=== PATIENT | female | born 1985 | race Caucasian/White ===

== ENCOUNTER 2017-03-14 16:30 | Observation (INO) ==
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
[2017-03-14 17:17] LABS: Bilirubin,Urine Negative (Negative); Blood,Urine Negative (Negative); Clarity,Urine Clear (Clear); Color,Urine Yellow (Yellow); Glucose,Urine (UA) Normal (Normal); Ketones,Urine Negative (Negative); Leukocyte Esterase,Urine Negative (Negative); Nitrite,Urine Negative (Negative); Protein,Urine Negative (Neg-Trace); Specific Gravity,Urine 1.009 (1.010-1.025); Urobilinogen,Urine Normal (Normal)
[2017-03-14 17:26] LABS: Amphetamine Screen,Urine Negative ng/mL (Cutoff=1000); Barbiturate Screen,Urine Negative ng/mL (Cutoff=200); Benzodiazepines Screen,Urine Negative ng/mL (Cutoff=200); Cannabinoid Screen,Urine Negative ng/mL (Cutoff = 50); Cocaine Screen,Urine Positive ng/mL (Cutoff= 300); Opiate Screen,Urine Negative ng/mL (Cutoff=300); Phencyclidine Screen,Urine Negative ng/mL (Cutoff=25)
[2017-03-14 17:26] LABS: Basophils % 0.2 %; Eosinophils # 0.1 K/mcL (0.0-0.6); Eosinophils % 1.1 %; Hemoglobin 15.5 g/dL (11.5-15.4); Immature Granulocytes % 0.2 % (0-4); Lymphocytes # 2.3 K/mcL (0.6-4.6); Lymphocytes % 28.7 %; Mean Corpuscular HGB Conc 33.7 g/dL (31.6-35.5); Mean Corpuscular Hemoglobin 29.7 pg (28.0-33.3); Mean Corpuscular Volume 88.1 fL (83.0-100.0); Mean Platelet Volume 9.5 fL (9.4-12.4); Monocytes # 0.4 K/mcL (0.0-1.3); Monocytes % 4.7 %; Neutrophils # 5.2 K/mcL (1.6-8.9); Platelet Count 299 K/mcL (140-400); Red Blood Count 5.22 M/mcL (3.82-4.97); Red Cell Distribution Width 13.6 % (11.5-14.5); Segmented Neutrophils % 65.1 %
[2017-03-14] MEDS ORDERED: *HR* LORazepam 1 MG TABLET PO ONE (17:29)
[2017-03-14 17:42] LABS: BUN/Creatinine Ratio 22 (6-26); Blood Urea Nitrogen 17 mg/dL (7-20); Calcium 9.9 mg/dL (8.6-10.8); Carbon Dioxide 26 mEq/L (19-29); Chloride 105 mEq/L (98-109); Glucose 124 mg/dL (70-99); Osmolality,Calculated 293 (280-300); Potassium 3.7 mEq/L (3.5-4.5); Sodium 140 mEq/L (136-145); eGFR For African Americans > 60 (> 60); eGFR For Non-African Americans > 60 (> 60)
[2017-03-14 17:43] LABS: Acetaminophen < 1.0 mcg/mL (10-30); Ethanol < 10 mg/dL (0-10); Salicylate < 5.0 mg/dL (15-30)
[2017-03-14 18:01] LABS: Albumin 4.2 g/dL (3.5-5.0); Albumin/Globulin Ratio 0.9 (1.1-2.2); Bilirubin,Direct 0.2 mg/dL (0.0-0.5); Bilirubin,Indirect 0.4 mg/dL (0.0-1.2); Bilirubin,Total 0.6 mg/dL (0.2-1.2); Globulin 4.5 g/dL (2.4-3.5); Total Protein 8.7 g/dL (6.0-8.3)
[2017-03-14] MEDS ORDERED: Nicotine 21 MG PATCH.TD24 TD ONE (19:15)
[2017-03-14] MEDS ORDERED: traZODone 50 MG TABLET PO PRN (21:53)
[2017-03-14] MEDS ORDERED: Haloperidol Lactate 5 MG/ML VIAL IM PRN (21:53)
[2017-03-14] MEDS ORDERED: hydrOXYzine pamoate 25 MG CAPSULE PO PRN (21:53)
[2017-03-14] MEDS ORDERED: *HR* LORazepam 2 MG/ML VIAL IM PRN (21:53)
[2017-03-14] MEDS ORDERED: Acetaminophen 325 MG TABLET PO PRN (21:53)
[2017-03-14] MEDS ORDERED: Mag Hydrox/Al Hydrox/Simeth 30 ML UDC PO PRN (21:53)
[2017-03-14] MEDS ORDERED: *HR* LORazepam 1 MG TABLET PO PRN (21:53)
[2017-03-14] MEDS ORDERED: MOM Conc 10 ML UD.LIQ PO PRN (21:53)
[2017-03-15] MEDS ORDERED: Nicotine 21 MG PATCH.TD24 TD SCH (09:00)
[2017-03-15 11:56] VITALS: BP 105/72
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
[2017-03-15] MEDS ORDERED: Nicotine 21 MG PATCH.TD24 TD ONE (18:42)
[2017-03-15] MEDS ORDERED: Mirtazapine 15 MG TABLET PO SCH (21:00)
--- NOTE | 2017-03-18 07:20 | Electrocardiograph Report ---
[place] [id number] Test Date: 2017-03-14 Pat Name: Georgiana Decker Department: [id number] Room: 1A22 Gender: F Client Renewal Specialist: [facility] : 1985 Requested By: Samuel Cope Order Number: [id number] Reading MD: Ventura Alonso MD Measurements Intervals [place] Rate: 82 P: 76 CT: 147 QRS: 60 QRSD: 88 T: 33 QT: 374 QTc: 412 Interpretive Statements SINUS RHYTHM LEFT ATRIAL ENLARGEMENT Electronically Signed On 03-18-2017 7:18:45 EDT by Ventura Alonso MD
== END 2017-03-15 14:25 | disposition home or self-care (01) ==
LOC: EMEROO 16:30 → 1ANU 16:30
PROVIDERS: ADMIT Student in an Organized Health Care Education/Training Program; ATTEND Student in an Organized Health Care Education/Training Program

== ENCOUNTER 2017-05-05 22:01 | Observation (INO) ==
[2017-05-05] MEDS ORDERED: Ondansetron 4 MG/2 ML VIAL IVP ONE (22:03)
--- NOTE | 2017-05-05 22:20 | Emergency Department Note ---
Overdose HPI - General Chief Complaint: ED Overdose Stated Complaint: OD Time Seen by Provider: 05/05/17 22:03 Source: patient, EMS Mode of arrival: EMS Limitations: no limitations, altered mental status Nursing Notes Reviewed: Yes Vital Signs Reviewed: Yes - History of Present Illness HPI Narrative: Patient presents from [facility] after being found unresponsive in the bathroom. She arrives in the care of EMS personnel. The police administered 2 mg of intranasal Narcan with rapid resolution of symptoms. Injection drug paraphernalia found at the scene. The patient presents anxious and nauseated with active vomiting. She admits to active IV methamphetamine use. She admits to using what she thought was "ice." She denies a suicide attempt. She denies ingestion of other intoxicants Pt Subjective Complaint: accidental overdose Onset (ago): Just [employer] Associated symptoms: emesis Treatments Prior to Arrival: narcan - Related Data Previous Rx's Medication Instructions Recorded Buspirone HCl [Buspar] 10 mg PO TID PRN #180 tablet 03/15/17 Cyclobenzaprine [Flexeril] 10 mg PO BID #20 tablet 03/15/17 DiphenhydraMINE [Benadryl] 25 mg PO Q6HR #40 capsule 03/15/17 Haloperidol [Haldol] 2 mg PO HS #30 tablet 03/15/17 Mirtazapine [Remeron] 15 mg PO HS #30 tablet 03/15/17 Benztropine [Cogentin] 1 mg PO BID PRN #10 tablet 03/16/17 Naproxen [Naprosyn] 250 mg PO BID #14 tablet 03/16/17 Allergies Allergy/AdvReac Type Severity Reaction Status Date / Time codeine Allergy Itching Verified 12/09/15 12:04 Fish Containing Products Allergy See Verified 03/15/17 11:59 Comments risperidone [From Risperdal] Allergy See Verified 08/10/16 19:21 Comments All systems ED: reviewed and negative except as stated. Constitutional: Reports: as per HPI Eyes: Reports: as per HPI ENT ED: Reports: as per HPI Cardiovascular: Reports: as per HPI Respiratory: Reports: as per HPI Gastrointestinal: Reports: nausea, vomiting Genitourinary: Reports: as per HPI Musculoskeletal: Reports: as per HPI Integumentary: Reports: as per HPI Neurological: Reports: as per HPI Psychiatric: Reports: as per HPI Endocrine: Reports: as per HPI Hematological/Lymphatic: Reports: as per HPI Allergic/Immunologic: Reports: as per HPI Past Medical History - Past Medical History Source: patient Medical history: Reports: asthma, seizures, other Surgical history: Reports: cholecystectomy Psychiatric history: Reports: bipolar, panic disorder, PTSD, prior suicide attempt, previous psychiatric hospitalization 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 - General Limitations: no limitations, altered mental status General appearance: appears intoxicated, anxious - Head Head exam: atraumatic - Eye Eye exam: Present: normal appearance - ENT ENT exam: normal exam - Neck Neck exam: Present: normal inspection - Chest Chest inspection: Present: normal inspection, symmetric chest wall rise - Respiratory Respiratory exam: Present: normal lung sounds bilaterally - Cardiovascular Cardiovascular exam: Present: regular rate, normal rhythm, normal heart sounds - Rectal Exam Rectal exam: Present: deferred - Extremities Exam Extremities exam: Present: normal inspection - Neurological Exam Neurological exam: Present: alert, oriented X3, CN II-XII intact - Psychiatric Psychiatric exam: Present: anxious - Skin Skin exam: Present: warm, dry, intact Course Course Narrative: Patient presents with an accidental overdose. She thought she was injecting methamphetamine but likely accidentally ingested opiates she is alert now that she has been given Narcan. She denies intention for self-harm. She does not appear otherwise intoxicated. Administered Zofran and diphenhydramine for her symptomatically for. The patient is contrite and apologetic - Reevaluation(s) Reevaluation #1: Care to be endorsed to Dr. Dejesus at 23:00 pending sobriety and reevaluate Vital Signs Temperature 97.7 F 05/05/17 22:11 Pulse Rate 93 05/05/17 22:11 Respiratory Rate 16 05/05/17 22:11 Blood Pressure 143/88 05/05/17 22:11 O2 Sat by Pulse Oximetry 99 05/05/17 22:11 Temperature 97.7 F 05/05/17 22:11 Pulse Rate 93 05/05/17 22:11 Respiratory Rate 16 05/05/17 22:11 Blood Pressure 143/88 05/05/17 22:11 O2 Sat by Pulse Oximetry 99 05/05/17 22:11 Oxygen Delivery Oxygen Delivery Room Air Disposition Clinical Impression: Accidental overdose Qualifiers: Encounter type: initial encounter Qualified Code(s): T50.901A - Poisoning by unspecified drugs, medicaments and biological substances, accidental ( unintentional), initial encounter Disposition: Home, Self-Care Condition: Fair Instructions: Adult Overdose (ED) Reasons to Return/Additional Instructions: Do not inject drugs. Whether this is methamphetamines or opiates or any other illicit substance, either way it is very dangerous and could kill you Referrals: NO,PCP [Primary Care Provider] - Forms: ED Satisfaction Letter Time of Disposition: 22:27
[2017-05-06 00:34] LABS: Basophils % 0.4 %; Eosinophils # 0.2 K/mcL (0.0-0.6); Eosinophils % 1.7 %; Hemoglobin 13.3 g/dL (11.5-15.4); Immature Granulocytes % 0.4 % (0-4); Lymphocytes # 1.7 K/mcL (0.6-4.6); Lymphocytes % 16.3 %; Mean Corpuscular HGB Conc 34.1 g/dL (31.6-35.5); Mean Corpuscular Hemoglobin 29.6 pg (28.0-33.3); Mean Corpuscular Volume 86.7 fL (83.0-100.0); Monocytes # 0.5 K/mcL (0.0-1.3); Monocytes % 5.3 %; Neutrophils # 7.7 K/mcL (1.6-8.9); Platelet Count 257 K/mcL (140-400); Segmented Neutrophils % 75.9 %
[2017-05-06 00:48] LABS: Alanine Aminotransferase 17 Units/L (0-55); Albumin 3.6 g/dL (3.5-5.0); Albumin/Globulin Ratio 1.1 (1.1-2.2); Alkaline Phosphatase 67 Units/L (38-126); Aspartate Amino Transferase 20 Units/L (5-34); BUN/Creatinine Ratio 11 (6-26); Bilirubin,Direct 0.2 mg/dL (0.0-0.5); Bilirubin,Indirect 0.1 mg/dL (0.0-1.2); Bilirubin,Total 0.3 mg/dL (0.2-1.2); Blood Urea Nitrogen 8 mg/dL (7-20); Calcium 9.1 mg/dL (8.6-10.8); Carbon Dioxide 29 mEq/L (19-29); Chloride 105 mEq/L (98-109); Globulin 3.4 g/dL (2.4-3.5); Glucose 127 mg/dL (70-99); Osmolality,Calculated 288 (280-300); Potassium 3.4 mEq/L (3.5-4.5); Sodium 139 mEq/L (136-145); eGFR For African Americans > 60 (> 60); eGFR For Non-African Americans > 60 (> 60)
[2017-05-06 01:01] LABS: Acetaminophen < 1.0 mcg/mL (10-30); Ethanol < 10 mg/dL (0-10); Salicylate < 5.0 mg/dL (15-30)
--- NOTE | 2017-05-06 01:31 | Emergency Department Note ---
Disposition Clinical Impression: Accidental overdose Qualifiers: Encounter type: initial encounter Qualified Code(s): T50.901A - Poisoning by unspecified drugs, medicaments and biological substances, accidental ( unintentional), initial encounter Disposition: Home, Self-Care Condition: Fair General Adult HPI - General Chief complaint: ED Overdose Stated complaint: OD Time Seen by Provider: 05/05/17 22:03 Source: patient, EMS Mode of arrival: EMS Limitations: no limitations, altered mental status - History of Present Illness Pain Scale: 0 - Related Data Previous Rx's Medication Instructions Recorded Buspirone HCl [Buspar] 10 mg PO TID PRN #180 tablet 03/15/17 Cyclobenzaprine [Flexeril] 10 mg PO BID #20 tablet 03/15/17 DiphenhydraMINE [Benadryl] 25 mg PO Q6HR #40 capsule 03/15/17 Haloperidol [Haldol] 2 mg PO HS #30 tablet 03/15/17 Mirtazapine [Remeron] 15 mg PO HS #30 tablet 03/15/17 Benztropine [Cogentin] 1 mg PO BID PRN #10 tablet 03/16/17 Naproxen [Naprosyn] 250 mg PO BID #14 tablet 03/16/17 Allergies Allergy/AdvReac Type Severity Reaction Status Date / Time codeine Allergy Itching Verified 12/09/15 12:04 Fish Containing Products Allergy See Verified 03/15/17 11:59 Comments risperidone [From Risperdal] Allergy See Verified 08/10/16 19:21 Comments Constitutional: Reports: as per HPI Eyes: Reports: as per HPI ENT ED: Reports: as per HPI Cardiovascular: Reports: as per HPI Respiratory: Reports: as per HPI Gastrointestinal: Reports: nausea, vomiting Genitourinary: Reports: as per HPI Musculoskeletal: Reports: as per HPI Integumentary: Reports: as per HPI Neurological: Reports: as per HPI Psychiatric: Reports: as per HPI Endocrine: Reports: as per HPI Hematological/Lymphatic: Reports: as per HPI Allergic/Immunologic: Reports: as per HPI Past Medical History - Past Medical History Medical history: Reports: asthma, seizures, other Surgical history: Reports: cholecystectomy Psychiatric history: Reports: bipolar, panic disorder, PTSD, prior suicide attempt, previous psychiatric hospitalization 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 - Social History Smoking Status: Current every day smoker Smokeless Tobacco Status: No Alcohol use: Reports: none Drug use: Reports: marijuana, IV Drug Use Physical Exam - General Limitations: no limitations, altered mental status General appearance: appears intoxicated, anxious Course Vital Signs Temperature 97.7 F 05/05/17 22:11 Pulse Rate 93 05/05/17 22:11 Respiratory Rate 16 05/05/17 22:11 Blood Pressure 143/88 05/05/17 22:11 O2 Sat by Pulse Oximetry 99 05/05/17 22:11 Temperature 97.7 F 05/05/17 22:11 Pulse Rate 70 05/06/17 00:55 Respiratory Rate 16 05/06/17 00:55 Blood Pressure 126/86 05/06/17 00:55 O2 Sat by Pulse Oximetry 98 05/06/17 00:55 Oxygen Delivery Oxygen Delivery Room Air Medical Decision Making - Lab Data Result diagrams: 05/06/17 00:04 05/06/17 00:04 Lab Results 05/06/17 05/06/17 Range/Units 00:04 00:04 WBC 10.1 (4.3-11.1) K/mcL RBC 4.50 (3.82-4.97) M/mcL Hgb 13.3 (11.5-15.4) g/dL Hct 39.0 (35.3-44.9) % MCV 86.7 (83.0-100.0) fL MCH 29.6 (28.0-33.3) pg MCHC 34.1 (31.6-35.5) g/dL RDW 13.0 (11.5-14.5) % Plt Count 257 (140-400) K/mcL MPV 10.0 (9.4-12.4) fL Immature Gran % 0.4 (0-4) % Seg Neutrophils % 75.9 % Lymphocytes % 16.3 % Monocytes % 5.3 % Eosinophils % 1.7 % Basophils % 0.4 % Neutrophils # 7.7 (1.6-8.9) K/mcL Lymphocytes # 1.7 (0.6-4.6) K/mcL Monocytes # 0.5 (0.0-1.3) K/mcL Eosinophils # 0.2 (0.0-0.6) K/mcL Basophils # 0.0 (0.0-0.2) K/mcL Sodium 139 (136-145) mEq/L Potassium 3.4 L (3.5-4.5) mEq/L Chloride 105 (98-109) mEq/L Carbon Dioxide 29 (19-29) mEq/L BUN 8 (7-20) mg/dL Creatinine 0.72 (0.57-1.11) mg/dL Est GFR ( Amer) > 60 (> 60) Est GFR (Non-Af Amer) > 60 (> 60) BUN/Creatinine Ratio 11 (6-26) Glucose 127 H (70-99) mg/dL Calculated Osmolality 288 (280-300) Calcium 9.1 (8.6-10.8) mg/dL Total Bilirubin 0.3 (0.2-1.2) mg/dL Direct Bilirubin 0.2 (0.0-0.5) mg/dL Indirect Bilirubin 0.1 (0.0-1.2) mg/dL AST 20 (5-34) Units/L ALT 17 (0-55) Units/L Alkaline Phosphatase 67 (38-126) Units/L Serum Total Protein 7.0 (6.0-8.3) g/dL Albumin 3.6 (3.5-5.0) g/dL Globulin 3.4 (2.4-3.5) g/dL Albumin/Globulin Ratio 1.1 (1.1-2.2) Salicylates < 5.0 L (15-30) mg/dL Acetaminophen < 1.0 L (10-30) mcg/mL Ethyl Alcohol < 10 (0-10) mg/dL Attestation Statement - Attestation Attestation: Please merge this chart. I saw this patient injected with Dr. Sandra Parra. In summary this patient suffered from a opiate overdose and ultimately had ongoing altered mental status requiring subsequent doses of Narcan. Chest x-ray revealed drug paraphernalia located in her underwear. This was sutured by our security and police department. The patient will be admitted to the intensive care unit for further monitoring. Basic laboratory analyses were obtained. The patient remains in critical condition with high potential for life- threatening deterioration. Critical care time was 35 minutes. This is excluding billable procedures.
[2017-05-06 02:06] LABS: Bilirubin,Urine Negative (Negative); Blood,Urine Small (Negative); Clarity,Urine Cloudy (Clear); Color,Urine Yellow (Yellow); Glucose,Urine (UA) Normal (Normal); Ketones,Urine Negative (Negative); Leukocyte Esterase,Urine Large (Negative); Nitrite,Urine Negative (Negative); Protein,Urine Negative (Neg-Trace); Specific Gravity,Urine 1.014 (1.010-1.025); Urobilinogen,Urine Normal (Normal)
[2017-05-06 02:14] LABS: Amphetamine Screen,Urine Positive ng/mL (Cutoff=1000); Barbiturate Screen,Urine Negative ng/mL (Cutoff=200); Benzodiazepines Screen,Urine Negative ng/mL (Cutoff=200); Cannabinoid Screen,Urine Negative ng/mL (Cutoff = 50); Cocaine Screen,Urine Positive ng/mL (Cutoff= 300); Opiate Screen,Urine Positive ng/mL (Cutoff=300); Phencyclidine Screen,Urine Negative ng/mL (Cutoff=25)
[2017-05-06 02:17] LABS: Squamous Epithelial Cell,Urine Many per lpf (None-Few)
[2017-05-06 02:18] LABS: Bacteria,Urine Many per hpf (None-Few); RBC,Urine 0-3 per hpf (0-3); WBC,Urine 15-30 per hpf (0-3)
[2017-05-06 02:19] LABS: Amorphous Sediment,Urine Moderate (Few); Mucus,Urine Few (Few)
--- NOTE | 2017-05-06 02:23 | Internal Med History&Physical ---
Date of Encounter: 05/06/17 Time of Encounter: 02:19 Assessment and Plan (1) Drug overdose, multiple drugs Current visit: Yes Status: Acute Patient's tox screen positive for opiates amphetamines and cocaine. Has been given several doses of Narcan tonight. Plan: Continue to monitor the patient. Narcan when necessary as needed for respiratory depression and altered mental status. Zofran for nausea. (2) Cocaine abuse Current visit: Yes Status: Acute Plan as above Internal Medicine - H&P: HPI Admitted From: Emergency Dept Plans for Post Hospital Care: Home History of present illness: Ms. Decker is a 31 year old female who was found unresponsive in a [facility] restroom. 2 mg of narcan was administered by police internasally. It was reported that this resolved patient's symptoms. She was subsequently given more doses of Narcan while in the emergency department due to an altered mental status. It was reported that on scene she had injection drug paraphernalia on her. She was here she was found to have drug paraphernalia in her bra. She is being admitted to the ICU for drug overdose with multiple Narcan administrations needed. On my examination emergency department the patient was asleep. She is easily aroused quickly went back to sleep. She is maintaining her airway appropriately. She is aware of where she is and what month it is however she says is 1998. Her pupils are dilated. They are responsive. She has full movement of all 4 extremities. When I attempt to check her feet she quickly draws up her legs and flails her arms saying that she is cold. We will monitor the patient in ICU for any respiratory depression. We have ordered urine Narcan to be used as needed for a for depression. Past Med Surg Social Fam HX - Past Medical History Medical history: asthma, seizures, other Psychiatric history: bipolar, panic disorder, PTSD, prior suicide attempt, previous psychiatric hospitalization - Past Surgical History Surgical History: cholecystectomy - Social History Smoking Status: Current every day smoker Smokeless Tobacco Status: No Alcohol use: none Drug use: marijuana, IV Drug Use Internal Medicine - H&P: Meds Buspirone HCl [Buspar] 10 mg PO TID PRN #180 tablet 03/15/17 [Rx] Cyclobenzaprine [Flexeril] 10 mg PO BID #20 tablet 03/15/17 [Rx] DiphenhydraMINE [Benadryl] 25 mg PO Q6HR #40 capsule 03/15/17 [Rx] Haloperidol [Haldol] 2 mg PO HS #30 tablet 03/15/17 [Rx] Mirtazapine [Remeron] 15 mg PO HS #30 tablet 03/15/17 [Rx] Benztropine [Cogentin] 1 mg PO BID PRN #10 tablet 03/16/17 [Rx] Naproxen [Naprosyn] 250 mg PO BID #14 tablet 03/16/17 [Rx] Allergies codeine Allergy (Verified 12/09/15 12:04) Itching Fish Containing Products Allergy (Verified 03/15/17 11:59) See Comments "Throat swells and gets hives" risperidone [From Risperdal] Allergy (Verified 08/10/16 19:21) See Comments ROS unobtainable: due to mental status (Patient is easily arousable however has an altered mental status. She is aware of her place in the month but does not know what year it is.) All Systems PM: A 10-system review of systems was performed and is negative for pertinent findings except as documented above in the HPI. - Constitutional Vitals: Temp Pulse Resp BP Pulse Ox 97.7 F 70 16 126/86 98 05/05/17 22:11 05/06/17 00:55 05/06/17 00:55 05/06/17 00:55 05/06/17 00:55 General appearance: Present: disheveled, A&O X 2 - Head Head exam: Present: atraumatic, normal inspection, normocephalic - Eye Eye exam: Present: conjunctival injection, EOMI, normal appearance, PERRL. Absent: scleral icterus Pupils: Present: normal accommodation - Neck Neck exam general surgery: Present: full ROM, normal inspection, trachea midline - Expanded Neck Exam Neck exam: Absent: anterior neck swelling, tracheal deviation - Respiratory Respiratory exam: Present: CTAB. Absent: accessory muscle use, chest wall tenderness - Cardiovascular Cardiovascular exam: Present: RRR. Absent: irregular rhythm, JVD - GI/Abdominal GI/Abdominal exam: Present: normal bowel sounds, soft, no peritoneal signs. Absent: distended, firm, guarding, rigid - Extremities Exam Extremities exam: Present: full ROM, normal capillary refill, normal inspection , warm, radial pulses palpable and symetrical. Absent: calf tenderness, pedal edema, tenderness - Neurological Exam Neurological exam: Present: alert, altered (Nose her location and her name also knows the month but is unaware of the year.), no focal deficits - Skin Skin exam: Present: dry, normal color, warm. Absent: abrasion, excoriation, rash Internal Med - H&P Results - Labs CBC & Chem 7: 05/06/17 00:04 05/06/17 00:04 Labs: Urine 05/06/17 Range/Units 01:45 Urine Color Yellow (Yellow) Urine Clarity Cloudy A (Clear) Urine pH 7.0 (5.0-8.0) pH Units Ur Specific [place] 1.014 (1.010-1.025) Urine Protein Negative (Neg-Trace) mg/dL Urine Glucose (UA) Normal (Normal) mg/dL
[2017-05-06] MEDS ORDERED: Ondansetron 4 MG/2 ML VIAL IVP PRN ×2 (02:52→14:22)
[2017-05-06] MEDS ORDERED: Acetaminophen 325 MG TABLET PO PRN ×2 (02:53→14:22)
[2017-05-06] MEDS ORDERED: Nicotine 7 MG PATCH.TD24 TD PRN ×2 (03:15→14:22)
[2017-05-06] MEDS: 0.9 % Sodium Chloride 1,000 ML IVC SCH ×4 (03:17→23:04)
[2017-05-06] MEDS ORDERED: Potassium Chloride Elixir 20 MEQ/15 ML UDC PO ONE (07:18)
--- NOTE | 2017-05-06 14:59 | Internal Med Progress Note ---
<Trevor Hackett - Last Filed: 05/06/17 16:24> Date of Encounter: 05/06/17 Time of Encounter: 09:45 - Assessment and plan (1) Accidental overdose Current Visit: Yes Status: Acute Assessment and plan: -Patient was found unresponsive in [facility]'s rest[facility] -She claims that she overdosed on Zyprexa, but admitted to attending physician that she was inhaling opiate medications -UDS: + opiates, cocaine, amphetamines -She admits to sharing needles previously - test ordered per poison control, which is negative -Narcan prn, zofran prn -We will measure a CMP in the morning to rule out any potential for delayed development of tylenol toxicity -SANE nurse evaluation and examination Qualifiers: Encounter type: initial encounter Qualified Code(s): T50.901A - Poisoning by unspecified drugs, medicaments and biological substances, accidental ( unintentional), initial encounter (2) Drug overdose, multiple drugs Current Visit: Yes Status: Acute Assessment and plan: As above Qualifiers: Encounter type: initial encounter Injury intent: accidental or unintentional Qualified Code(s): T50.901A - Poisoning by unspecified drugs, medicaments and biological substances, accidental (unintentional), initial encounter (3) Polysubstance dependence including opioid type drug, episodic abuse Current Visit: Yes Status: Acute Assessment and plan: The patient has a history of polysubstance abuse, which is manifesting acutely in the form of a drug overdose. She is asking for opioid pain medication and has remained agitated. -We will continue to monitor for signs of D/T (4) DVT prophylaxis Current Visit: Yes Status: Acute Assessment and plan: -Start SQ Heparin (5) UTI (urinary tract infection) Current Visit: Yes Status: Acute Assessment and plan: -Urine shows LE and Nitrite, however there are also many squamous cells -Given altered mental status from overdose, concomittant UTI cannot be ruled out given the urine sample -Order repeat urine from cath -Patient given ceftriaxone empirically. Qualifiers: Urinary tract infection type: acute cystitis Hematuria presence: without hematuria Qualified Code(s): N30.00 - Acute cystitis without hematuria - Subjective Interval history: The patient was asleep but easy to arouse at the time of exam. She was uncooperative with exam, spoke quietly, and did not answer questions openly. - Constitutional Vitals: Temp Pulse Resp BP Pulse Ox 97.1 F L 82 17 110/75 96 05/06/17 12:04 05/06/17 12:45 05/06/17 12:45 05/06/17 12:45 05/06/17 12:45 General appearance: Present: disheveled, A&O X 2, no acute distress, underweight. Absent: cooperative - Head Head exam: Present: atraumatic, normal inspection - Eye Eye exam: Present: normal appearance, PERRL - ENT ENT exam: Present: mucous membranes moist - Neck Neck exam general surgery: Present: normal inspection, supple, trachea midline. Absent: lymphadenopathy, tenderness - Respiratory Respiratory exam: Present: accessory muscle use, CTAB. Absent: rhonchi, stridor , wheezes - Cardiovascular Cardiovascular exam: Present: RRR, +S1, +S2. Absent: gallop, JVD, rubs - GI/Abdominal GI/Abdominal exam: Present: normal bowel sounds, soft, no peritoneal signs. Absent: distended, tenderness - Extremities Exam Extremities exam: Present: warm, radial pulses palpable and symetrical. Absent : calf tenderness, cyanotic, pedal edema - Neurological Exam Neurological exam: Present: altered, CN II-XII intact, reflexes normal, no focal deficits Additional comments: Patient is alert to physical stimuli but somnolent - Psychiatric Psychiatric exam: Present: agitated, anxious, flat affect. Absent: suicidal ideation - Skin Skin exam: Present: dry, excoriation, normal color. Absent: petechiae, rash Internal Medicine: Result - Labs CBC & Chem 7: 05/06/17 00:04 05/06/17 00:04 Labs: Urine 05/06/17 Range/Units 01:45 Urine Color Yellow (Yellow) Urine Clarity Cloudy A (Clear) Urine pH 7.0 (5.0-8.0) pH Units Ur Specific [place] 1.014 (1.010-1.025) Urine Protein Negative (Neg-Trace) mg/dL Urine Glucose (UA) Normal (Normal) mg/dL Consult Discharge Plan - Plan Referrals: NO,PCP [Primary Care Provider] - <Remigio Beaver P - Last Filed: 05/06/17 20:25> Date of Encounter: 05/06/17 - Constitutional Vitals: Temp Pulse Resp BP Pulse Ox 97.1 F L 82 17 110/75 96 05/06/17 12:04 05/06/17 12:45 05/06/17 12:45 05/06/17 12:45 05/06/17 12:45 Internal Medicine: Result - Labs CBC & Chem 7: 05/06/17 00:04 05/06/17 00:04 Labs: Urine 05/06/17 Range/Units 01:45 Urine Color Yellow (Yellow) Urine Clarity Cloudy A (Clear) Urine pH 7.0 (5.0-8.0) pH Units Ur Specific [place] 1.014 (1.010-1.025) Urine Protein Negative (Neg-Trace) mg/dL Urine Glucose (UA) Normal (Normal) mg/dL - Attending Attestation This is a event note and this note should not be billed I examined this patient and my medical decision-making was reviewed with the Resident Physician. I agree with the documented findings, disposition and treatment plan as described except to the extent set forth below. 31/female Admitted with drug overdose. Evaluated by katiee nurse and their input appreciated. Need further workup if she stays overnight. Patient can be transferred out of ICU
--- NOTE | 2017-05-06 20:08 | Electrocardiograph Report ---
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
[2017-05-06] MEDS: *HR* Heparin 5,000 UNIT/ML VIAL SQ SCH (20:33)
[2017-05-06] MEDS ORDERED: Mirtazapine 15 MG TABLET PO SCH (21:00)
[2017-05-07] MEDS: *HR* Heparin 5,000 UNIT/ML VIAL SQ SCH (06:40)
[2017-05-07] MEDS: 0.9 % Sodium Chloride 1,000 ML IVC SCH (06:40)
[2017-05-07 06:53] LABS: Basophils % 0.4 %; Eosinophils # 0.2 K/mcL (0.0-0.6); Eosinophils % 4.2 %; Hematocrit 36.9 % (35.3-44.9); Hemoglobin 12.7 g/dL (11.5-15.4); Immature Granulocytes % 0.2 % (0-4); Lymphocytes % 48.3 %; Mean Corpuscular HGB Conc 34.4 g/dL (31.6-35.5); Mean Corpuscular Hemoglobin 30.2 pg (28.0-33.3); Mean Corpuscular Volume 87.9 fL (83.0-100.0); Mean Platelet Volume 10.3 fL (9.4-12.4); Monocytes # 0.4 K/mcL (0.0-1.3); Monocytes % 7.9 %; Platelet Count 246 K/mcL (140-400); Red Cell Distribution Width 13.3 % (11.5-14.5)
[2017-05-07 06:55] LABS: Alanine Aminotransferase 12 Units/L (0-55); Albumin 2.9 g/dL (3.5-5.0); Albumin/Globulin Ratio 0.9 (1.1-2.2); Alkaline Phosphatase 57 Units/L (38-126); Aspartate Amino Transferase 11 Units/L (5-34); BUN/Creatinine Ratio 14 (6-26); Bilirubin,Total 0.2 mg/dL (0.2-1.2); Blood Urea Nitrogen 11 mg/dL (7-20); Calcium 8.9 mg/dL (8.6-10.8); Carbon Dioxide 30 mEq/L (19-29); Chloride 108 mEq/L (98-109); Globulin 3.2 g/dL (2.4-3.5); Glucose 132 mg/dL (70-99); Lymphocytes # 2.5 K/mcL (0.6-4.6); Osmolality,Calculated 293 (280-300); Potassium 4.1 mEq/L (3.5-4.5); Sodium 141 mEq/L (136-145); Total Protein 6.1 g/dL (6.0-8.3); eGFR For African Americans > 60 (> 60); eGFR For Non-African Americans > 60 (> 60)
[2017-05-07 08:35] VITALS: BP 97/62
--- NOTE | 2017-05-07 16:24 | Discharge Summary ---
<Trevor Hackett - Last Filed: 05/07/17 16:30> Date of Encounter: 05/07/17 Time of Encounter: 09:30 - Discharge Diagnosis (1) Accidental overdose Priority: Primary Status: Acute Comments: -Patient was found unresponsive in [facility]'s restroom -UDS: + opiates, cocaine, amphetamines -She admits to sharing needles previously - test ordered per poison control, which is negative -Narcan prn, zofran prn -SANE nurse evaluation and examination attempted but refused by patient. -No treatment given beyond this as patient left AMA. Qualifiers: Encounter type: initial encounter Qualified Code(s): T50.901A - Poisoning by unspecified drugs, medicaments and biological substances, accidental ( unintentional), initial encounter (2) Drug overdose, multiple drugs Priority: Primary Status: Acute Comments: As above Qualifiers: Encounter type: initial encounter Injury intent: accidental or unintentional Qualified Code(s): T50.901A - Poisoning by unspecified drugs, medicaments and biological substances, accidental (unintentional), initial encounter (3) UTI (urinary tract infection) Priority: Secondary Status: Acute Comments: -Urine shows LE and Nitrite, however there are also many squamous cells -Patient given ceftriaxone empirically but did not complete treatment due to leaving AMA Qualifiers: Urinary tract infection type: acute cystitis Hematuria presence: without hematuria Qualified Code(s): N30.00 - Acute cystitis without hematuria (4) Polysubstance dependence including opioid type drug, episodic abuse Priority: Secondary Status: Acute Comments: The patient has a history of polysubstance abuse, which is manifesting acutely in the form of a drug overdose. She asked for opioid pain medication and has remained agitated. Patient shouted extremities at nursing staff and left AMA (5) DVT prophylaxis Priority: Secondary Status: Acute - Discharge Medications Home Medications: Buspirone HCl [Buspar] 10 mg PO TID PRN #180 tablet 03/15/17 [Rx] Mirtazapine [Remeron] 15 mg PO HS #30 tablet 03/15/17 [Rx] Allergies/Adverse Reactions: Allergies codeine Allergy (Verified 12/09/15 12:04) Itching Fish Containing Products Allergy (Verified 03/15/17 11:59) See Comments "Throat swells and gets hives" risperidone [From Risperdal] Allergy (Verified 08/10/16 19:21) See Comments Date of admission: 05/06/17 01:26 Primary care physician: PCP NO Consults: 05/07/17 08:41 Consult to Game Warden [CONS] Routine Reason for SW Consult: homeless and IVDU - Patient Status Disposition: Left Against Medical Advice Condition: Fair Overall status at discharge: other (it is unclear) - Discharge Instructions Follow Up With: Yamle Solitario DO [Resident] - 06/03/17 9:00 am (Please bring your photo ID, insurance card, completed new patient packet you will receive in the mail and a list of all medications you are taking. If you need to cancel, please give a 24 hour notice. Thank you) - Diet and Activity Activity: increase activity as tolerated Diet: advance to your usual diet Interval History: Ms Decker is a 31 yo female with a history of polysubstance abuse, multiple accidental overdoses, depression, bipolar dissorder, suicidal ideations. She was brought to the ED after being found unconscious in a [facility] restroom. At the scene, police administered multiple doses of narcan which caused her to regain consciousness. She recieved several more doses in the ED, and she admitted to IV drug use which had transitioned to inhaled drug use. Her UDS was positive for amphetamine, opiates, and cocaine. She also was found to have a UTI , which was treated with ceftriaxone in the ED. She was admitted to the ICU initially for drug overdose, and was later moved to the medical floor when she became alert and stable. when asked about why she had overdosed in a [facility] rest room, the patient was evasive, and did not wnt to answer questions. [facility], however the patient was uncooperative and would not answer any questions for fear of being sent to rehab or having her income interrupted. This morning the patient agreed to stay for workup, however before any imaging or laboratory studies had been completed she left AMA , which was described in the following nursing note: "pt while preparing AMA forms was walking off of unit to leave, she was stopped and asked to sign form that she is leaving against medical advise, she was risk of leaving pt signed form and began to run off umit stating her gaol was , yelled doing two of something however this RN was unable to understand what she was yelling". Hospital course: Ms. Decker is a 31 year old female history of IV drug abuse, overdose, depression, suicidal ideations, who was brought to the ED after Being found unresponsive at a [facility] restroom - Time Spent with Patient Total time spent providing and/or coordinating discharge services: - Constitutional Vitals: Temp Pulse Resp BP Pulse Ox 97.3 F L 67 18 97/62 99 05/07/17 08:33 05/07/17 08:33 05/07/17 08:33 05/07/17 08:33 05/07/17 08:33 General appearance: Present: disheveled, A&O X 3, no acute distress, underweight. Absent: cooperative Exam: - Head Head exam: Present: atraumatic, normal inspection - Eye Eye exam: Present: normal appearance, PERRL - ENT ENT exam: Present: mucous membranes moist - Neck Neck exam general surgery: Present: normal inspection, supple, trachea midline. Absent: lymphadenopathy, tenderness - Respiratory Respiratory exam: Present: accessory muscle use, CTAB. Absent: rhonchi, stridor , wheezes - Cardiovascular Cardiovascular exam: Present: RRR, +S1, +S2. Absent: gallop, JVD, rubs - GI/Abdominal GI/Abdominal exam: Present: normal bowel sounds, soft, no peritoneal signs. Absent: distended, tenderness - Extremities Exam Extremities exam: Present: warm, radial pulses palpable and symetrical. Absent : calf tenderness, cyanotic, pedal edema - Neurological Exam Neurological exam: Present: altered, CN II-XII intact, reflexes normal, no focal deficits Additional comments: Patient is alert to physical stimuli but somnolent - Psychiatric Psychiatric exam: Present: agitated, anxious, flat affect. Absent: suicidal ideation - Skin Skin exam: Present: dry, excoriation, normal color. Absent: petechiae, rash <Remigio Beaver P - Last Filed: 05/07/17 18:27> Date of Encounter: 05/07/17 Date of admission: 05/06/17 01:26 Primary care physician: PCP NO Consults: 05/07/17 08:41 Consult to Game Warden [CONS] Routine Reason for SW Consult: homeless and IVDU Hospital course: Ms. Decker is a 31 year old female - Time Spent with Patient Total time spent providing and/or coordinating discharge services: - Constitutional Vitals: Temp Pulse Resp BP Pulse Ox 97.3 F L 67 18 97/62 99 05/07/17 08:33 05/07/17 08:33 05/07/17 08:33 05/07/17 08:33 05/07/17 08:33 - Attending Attestation I examined this patient and my medical decision-making was reviewed with the Resident Physician. I agree with the documented findings, disposition and treatment plan as described except to the extent set forth below. Admitted with drug overdose. Evaluated by sane nurse. Patient is not keen for any further workup. Patient signed out AMA. Patient is aware of consequences which can be started on shortness of breath, heart attack, stroke, septic arthritis, kidney infection and even
== END 2017-05-07 09:56 | disposition left against medical advice (07) ==
LOC: EMEROO 22:01 → ICNU 22:01 → SUATTDRO 05-06 01:26 → ICNU 05-06 03:57 → 3ANU 05-06 21:07
PROVIDERS: ADMIT Pediatrics; ATTEND Internal Medicine

== ENCOUNTER 2019-04-30 20:29 | Observation (INO) ==
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
[2019-04-30 21:08] LABS: Basophils % 0.3 %; Eosinophils # 0.2 K/mcL (0.0-0.6); Eosinophils % 3.1 %; Hematocrit 39.9 % (35.3-44.9); Hemoglobin 13.5 g/dL (11.5-15.4); Immature Granulocytes % 0.3 % (0-4); Lymphocytes # 1.9 K/mcL (0.6-4.6); Lymphocytes % 27.9 %; Mean Corpuscular HGB Conc 33.8 g/dL (31.6-35.5); Mean Corpuscular Hemoglobin 29.7 pg (28.0-33.3); Mean Corpuscular Volume 87.7 fL (83.0-100.0); Mean Platelet Volume 9.9 fL (9.4-12.4); Monocytes # 0.4 K/mcL (0.0-1.3); Monocytes % 6.2 %; Neutrophils # 4.2 K/mcL (1.6-8.9); Platelet Count 238 K/mcL (140-400); Red Blood Count 4.55 M/mcL (3.82-4.97); Red Cell Distribution Width 13.7 % (11.5-14.5); Segmented Neutrophils % 62.2 %; White Blood Count 6.8 K/mcL (4.3-11.1)
[2019-04-30 21:30] LABS: Alanine Aminotransferase 14 Units/L (7-52); Albumin 3.9 g/dL (3.5-5.7); Albumin/Globulin Ratio 1.3 (1.1-2.2); Alkaline Phosphatase 47 Units/L (34-104); Aspartate Amino Transferase 16 Units/L (13-39); BUN/Creatinine Ratio 18 (6-26); Bilirubin,Total 0.5 mg/dL (0.3-1.0); Blood Urea Nitrogen 11 mg/dL (6-20); Calcium 8.9 mg/dL (8.6-10.3); Carbon Dioxide 24 mEq/L (23-29); Chloride 107 mEq/L (98-107); Glucose 88 mg/dL (70-105); Osmolality,Calculated 287 (280-300); Potassium 2.8 mEq/L (3.5-5.1); Sodium 139 mEq/L (136-145); Total Protein 6.9 g/dL (6.4-8.9); Troponin I < 0.03 ng/mL (< 0.04); eGFR For African Americans > 60 (> 60); eGFR For Non-African Americans > 60 (> 60)
[2019-04-30] MEDS ORDERED: Potassium Chloride 20 MEQ, Lidocaine 1% 2 ML in D5% in Water 250 ML IVPB ONE (21:35)
[2019-04-30] MEDS ORDERED: Potassium Chloride Elixir 20 MEQ/15 ML UDC PO ONE (21:36)
[2019-05-01] MEDS ORDERED: Naloxone 0.4 MG/ML INJ IVP PRN (02:15)
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
[2019-05-01] MEDS ORDERED: Aminoglycoside Consult 1 EACH MC ONE (12:40)
[2019-05-01] MEDS: *HR* Heparin 5,000 UNIT/ML VIAL SQ SCH ×2 (17:38→21:37)
[2019-05-01] MEDS ORDERED: Mirtazapine 15 MG TABLET PO SCH (21:00)
[2019-05-01 21:21] LABS: Acinetobacter baumannii by PCR Not Detected (Not Detect); Candida albicans by PCR Not Detected (Not Detect); Candida glabrata by PCR Not Detected (Not Detect); Candida krusei by PCR Not Detected (Not Detect); Candida parapsilosis by PCR Not Detected (Not Detect); Candida tropicalis by PCR Not Detected (Not Detect); Enterobacter cloacae Cmplx PCR Not Detected (Not Detect); Enterobacteriaceae by PCR Not Detected (Not Detect); Enterococcus by PCR Not Detected (Not Detect); Escherichia coli by PCR Not Detected (Not Detect); Klebsiella oxytoca by PCR Not Detected (Not Detect); Klebsiella pneumoniae by PCR Not Detected (Not Detect); Proteus by PCR Not Detected (Not Detect); Pseudomonas aeruginosa by PCR Not Detected (Not Detect); Serratia marcescens by PCR Not Detected (Not Detect); Staphylococcus aureus by PCR DETECTED (Not Detect); Streptococcus agalactiae(B)PCR Not Detected (Not Detect); Streptococcus by PCR Not Detected (Not Detect); Streptococcus pneumoniae PCR Not Detected (Not Detect); Streptococcus pyogenes (A) PCR Not Detected (Not Detect); mecA Methicillin-Resist Gene DETECTED (Not Detect)
[2019-05-02] MEDS: *HR* Heparin 5,000 UNIT/ML VIAL SQ SCH (05:15)
[2019-05-02 06:33] LABS: BUN/Creatinine Ratio 19 (6-26); Blood Urea Nitrogen 12 mg/dL (6-20); Calcium 8.7 mg/dL (8.6-10.3); Carbon Dioxide 26 mEq/L (23-29); Chloride 106 mEq/L (98-107); Glucose 109 mg/dL (70-105); Osmolality,Calculated 286 (280-300); Potassium 3.9 mEq/L (3.5-5.1); Sodium 138 mEq/L (136-145); eGFR For African Americans > 60 (> 60); eGFR For Non-African Americans > 60 (> 60)
[2019-05-02 10:40] VITALS: BP 110/73
--- NOTE | 2019-05-02 13:21 | Discharge Summary ---
- NOTES TO OUTPATIENT PROVIDER Notes to Outpatient Provider: Follow-up on the cultures. Orders not resulted at time of discharge: Pending orders 04/30/19 20:36 ECG 12 lead ECG [ECG] Stat 04/30/19 20:52 Culture,Blood [BC] Stat 05/02/19 08:41 Culture,Blood [BC] Stat Date of Encounter: 05/02/19 Time of Encounter: 09:00 - Discharge Diagnosis (1) MRSA bacteremia Priority: Primary Status: Acute (2) Bipolar disorder with depression Priority: Secondary Status: Acute (3) DVT prophylaxis Priority: Secondary Status: Acute (4) Hypokalemia Priority: Secondary Status: Acute (5) IV drug abuse Priority: Secondary Status: Acute (6) Heroin use Priority: Secondary Status: Acute (7) Heart murmur Priority: Secondary Status: Acute Hospital course: Ms. Decker is a 33 year old female with history of IV drug abuse, bipolar disorder who was admitted to the hospital due to fentanyl overdose. Patient was found to have a heart murmur. Her blood cultures grew MRSA and one of 2 bottles. Patient was started on vancomycin and echocardiogram was ordered to rule out endocarditis. Patient threatened to leave AMA and she could have bothe red by checking her vitals and opening the door of her room when her is there, However I have convinced her to stay and she denied any suicidal ideation. Later on, I was the nurse that the patient left AMA before I was able to come and talk to her. During the rounds, I explained to the patient that she is at risk for endocarditis which we will treat. Patient had full mental capacity to make medical decisions as per my assessment during the rounds. She left AMA before i was able to talk to her - Time Spent with Patient Total time spent providing and/or coordinating discharge services: 10 minutes - Discharge Medications Prescriptions: New Naloxone [Narcan] 4 mg NS AD #2 sprays Home Medications: Naloxone [Narcan] 4 mg NS AD #2 sprays 04/30/19 [Rx] Allergies/Adverse Reactions: Allergy/AdvReac Type Severity Reaction Status Date / Time codeine Allergy Itch RAW Verified 05/01/19 15:39 Fish Containing Products Allergy See Verified 05/01/19 15:39 Comments haloperidol [From Haldol] Allergy See Verified 05/01/19 15:39 Comments risperidone [From Risperdal] Allergy See Verified 05/01/19 15:39 Comments Date of admission: 05/01/19 00:21 Primary care physician: PCP NONE Consults: 05/01/19 02:00 Consult to Nutrition [CONS] Routine Comment: Consulting Provider: NUTRITION Reason for Dietary Consult: MST Score - Constitutional Vitals: Temp Pulse Resp BP Pulse Ox 98.1 F 79 16 110/73 96 05/02/19 10:39 05/02/19 10:39 05/02/19 10:39 05/02/19 10:39 05/02/19 10:54 Exam: Patient left AMA before I could examine her. - Patient Status Disposition: Left Against Medical Advice Condition: Serious Functional capacity at discharge: independent ambulation Overall status at discharge: patient is not back to baseline - Discharge Instructions Forms: ED Satisfaction Letter - Diet and Activity Activity: increase activity as tolerated Diet: low salt diet
--- NOTE | 2019-05-04 21:31 | Electrocardiograph Report ---
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
== END 2019-05-02 12:41 | disposition left against medical advice (07) ==
LOC: 3ANU 20:29 → EMEROOARM 20:29 → SUATTDRO 05-01 00:21 → 3ANU 05-01 01:39
PROVIDERS: ADMIT Pediatrics; ATTEND Internal Medicine

== ENCOUNTER 2019-08-12 12:53 | Inpatient (IN) ==
[2019-08-12] MEDS ORDERED: 0.9 % Sodium Chloride 1,000 ML IVC ONE ×2 (13:32→14:44)
[2019-08-12] MEDS ORDERED: Ketorolac 15 MG/ML VIAL IVP ONE (13:33)
[2019-08-12] MEDS ORDERED: Acetaminophen 325 MG TABLET PO ONE (13:49)
[2019-08-12 14:14] LABS: Basophils % 0.2 %; Eosinophils % 0.2 %; Hemoglobin 11.8 g/dL (11.5-15.4); Immature Granulocytes % 0.8 % (0-4); Lymphocytes # 0.9 K/mcL (0.6-4.6); Lymphocytes % 10.2 %; Mean Corpuscular HGB Conc 34.7 g/dL (31.6-35.5); Mean Corpuscular Hemoglobin 27.9 pg (28.0-33.3); Mean Platelet Volume 10.1 fL (9.4-12.4); Monocytes # 0.7 K/mcL (0.0-1.3); Monocytes % 7.3 %; Neutrophils # 7.3 K/mcL (1.6-8.9); Platelet Count 217 K/mcL (140-400); Red Blood Count 4.23 M/mcL (3.82-4.97); Red Cell Distribution Width 13.8 % (11.5-14.5); Segmented Neutrophils % 81.3 %
[2019-08-12 14:21] LABS: Alanine Aminotransferase 14 Units/L (7-52); Albumin 3.2 g/dL (3.5-5.7); Albumin/Globulin Ratio 0.8 (1.1-2.2); Alkaline Phosphatase 85 Units/L (34-104); Aspartate Amino Transferase 12 Units/L (13-39); BUN/Creatinine Ratio 12 (6-26); Bilirubin,Total 0.4 mg/dL (0.3-1.0); Blood Urea Nitrogen 6 mg/dL (6-20); Calcium 8.8 mg/dL (8.6-10.3); Carbon Dioxide 35 mEq/L (23-29); Chloride 88 mEq/L (98-107); Glucose 170 mg/dL (70-105); Mean Corpuscular Volume 80.4 fL (83.0-100.0); Osmolality,Calculated 274 (280-300); Potassium 2.6 mEq/L (3.5-5.1); Sodium 131 mEq/L (136-145); Total Protein 7.2 g/dL (6.4-8.9); eGFR For African Americans > 60 (> 60); eGFR For Non-African Americans > 60 (> 60)
[2019-08-12] MEDS ORDERED: Azithromycin 500 MG in 0.9 % Sodium Chloride 250 ML IVPB ONE (14:41)
[2019-08-12] MEDS ORDERED: cefTRIAXone 1,000 MG in Water for inj. (sterile) 10 ML IVP ONE (14:41)
[2019-08-12] MEDS ORDERED: Isovue-370 500 ML BOTTLE IVP ONE (14:52)
[2019-08-12] MEDS ORDERED: 0.9 % Sodium Chloride w KCl 40 MEQ/1,000 ML MLS IVC SCH (15:00)
[2019-08-12 16:03] LABS: Magnesium 1.9 mg/dL (1.6-2.6); Phosphorous 2.3 mg/dL (2.7-4.5)
[2019-08-12] MEDS ORDERED: Naloxone 0.4 MG/ML INJ IVP PRN (16:09)
[2019-08-12] MEDS ORDERED: Ondansetron 4 MG/2 ML VIAL IVP PRN (16:09)
[2019-08-12] MEDS ORDERED: Ketorolac 15 MG/ML VIAL IVP PRN (16:12)
[2019-08-12] MEDS ORDERED: *HR* LORazepam 2 MG/ML VIAL IVP PRN (16:14)
[2019-08-12] MEDS: Acetaminophen 325 MG TABLET PO SCH (19:10)
[2019-08-12] MEDS ORDERED: Acetaminophen IV 1,000 MG/100 ML INFUS..BTL IVPB ONE (21:34)
[2019-08-12] MEDS ORDERED: Ibuprofen 600 MG TABLET PO ONE (22:49)
[2019-08-12 23:18] LABS: Phosphorous 2.1 mg/dL (2.7-4.5)
[2019-08-13] MEDS: 0.9 % Sodium Chloride w KCl 40 MEQ/1,000 ML MLS IVC SCH ×2 (00:18→09:24)
[2019-08-13] MEDS: Acetaminophen 325 MG TABLET PO SCH ×4 (00:25→18:36)
[2019-08-13 02:30] LABS: Bilirubin,Urine Negative (Negative); Blood,Urine Negative (Negative); Clarity,Urine Cloudy (Clear); Color,Urine Yellow (Yellow); Glucose,Urine (UA) Normal (Normal); Ketones,Urine Negative (Negative); Leukocyte Esterase,Urine Negative (Negative); Nitrite,Urine Negative (Negative); PH,Urine 6.5 pH Units (5.0-8.0); Protein,Urine Negative (Neg-Trace); Specific Gravity,Urine 1.006 (1.010-1.025); Urobilinogen,Urine Normal (Normal)
[2019-08-13 02:32] LABS: Bacteria,Urine Few per hpf (None-Few); Hyaline Casts,Urine None Seen per lpf (None-Few); RBC,Urine 0-3 per hpf (0-3); Squamous Epithelial Cell,Urine Many per lpf (None-Few)
[2019-08-13] MEDS: Ketorolac 30 MG/ML VIAL IVP PRN ×3 (04:28→17:12)
[2019-08-13 04:41] LABS: Basophils % 0.2 %; Eosinophils # 0.1 K/mcL (0.0-0.6); Eosinophils % 0.6 %; Hematocrit 32.9 % (35.3-44.9); Hemoglobin 10.6 g/dL (11.5-15.4); Immature Granulocytes % 0.8 % (0-4); Lymphocytes # 1.5 K/mcL (0.6-4.6); Lymphocytes % 14.3 %; Mean Corpuscular HGB Conc 32.2 g/dL (31.6-35.5); Mean Platelet Volume 10.4 fL (9.4-12.4); Monocytes # 0.8 K/mcL (0.0-1.3); Monocytes % 7.8 %; Neutrophils # 7.8 K/mcL (1.6-8.9); Platelet Count 187 K/mcL (140-400); Red Blood Count 3.79 M/mcL (3.82-4.97); Segmented Neutrophils % 76.3 %; White Blood Count 10.2 K/mcL (4.3-11.1)
[2019-08-13 05:10] LABS: BUN/Creatinine Ratio 7 (6-26); Blood Urea Nitrogen 3 mg/dL (6-20); Calcium 8.1 mg/dL (8.6-10.3); Carbon Dioxide 28 mEq/L (23-29); Chloride 106 mEq/L (98-107); Glucose 103 mg/dL (70-105); Magnesium 1.9 mg/dL (1.6-2.6); Osmolality,Calculated 285 (280-300); Phosphorous 3.5 mg/dL (2.7-4.5); Potassium 3.4 mEq/L (3.5-5.1); Sodium 139 mEq/L (136-145); eGFR For African Americans > 60 (> 60); eGFR For Non-African Americans > 60 (> 60)
[2019-08-13 05:12] LABS: Mean Corpuscular Volume 86.8 fL (83.0-100.0)
[2019-08-13] MEDS ORDERED: levoFLOXacin 750 MG/150 ML 750 MG/150 ML BAG IVPB SCH (09:00)
[2019-08-13 09:30] LABS: Acinetobacter baumannii by PCR Not Detected (Not Detect); Candida albicans by PCR Not Detected (Not Detect); Candida glabrata by PCR Not Detected (Not Detect); Candida krusei by PCR Not Detected (Not Detect); Candida parapsilosis by PCR Not Detected (Not Detect); Candida tropicalis by PCR Not Detected (Not Detect); Enterobacter cloacae Cmplx PCR Not Detected (Not Detect); Enterobacteriaceae by PCR Not Detected (Not Detect); Enterococcus by PCR Not Detected (Not Detect); Escherichia coli by PCR Not Detected (Not Detect); Klebsiella oxytoca by PCR Not Detected (Not Detect); Klebsiella pneumoniae by PCR Not Detected (Not Detect); Proteus by PCR Not Detected (Not Detect); Pseudomonas aeruginosa by PCR Not Detected (Not Detect); Serratia marcescens by PCR Not Detected (Not Detect); Staphylococcus aureus by PCR DETECTED (Not Detect); Streptococcus agalactiae(B)PCR Not Detected (Not Detect); Streptococcus by PCR Not Detected (Not Detect); Streptococcus pneumoniae PCR Not Detected (Not Detect); Streptococcus pyogenes (A) PCR Not Detected (Not Detect); mecA Methicillin-Resist Gene DETECTED (Not Detect)
[2019-08-13] MEDS ORDERED: 0.9 % Sodium Chloride w KCl 40 MEQ/1,000 ML MLS IVC SCH (11:50)
[2019-08-13 15:38] VITALS: BP 109/66
[2019-08-13] MEDS ORDERED: traMADol 50 MG TABLET PO PRN (17:42)
[2019-08-13] MEDS ORDERED: Aminoglycoside Consult 1 EACH MC ONE (20:19)
== END 2019-08-13 20:20 | disposition left against medical advice (07) | DRG 720 ==
LOC: EMEROOARM 12:53 → SUATTDRO 16:29 → 2NENU 16:29
PROVIDERS: ADMIT Student in an Organized Health Care Education/Training Program; ATTEND Internal Medicine

== ENCOUNTER 2019-11-09 08:35 | Inpatient (IN) ==
[2019-11-09 09:11] LABS: Basophils # 0.1 K/mcL (0.0-0.2); Basophils % 0.7 %; Eosinophils # 0.1 K/mcL (0.0-0.6); Eosinophils % 1.4 %; Hematocrit 42.9 % (35.3-44.9); Hemoglobin 12.8 g/dL (11.5-15.4); Immature Granulocytes % 1.8 % (0-4); Lymphocytes # 2.6 K/mcL (0.6-4.6); Lymphocytes % 32.4 %; Mean Corpuscular HGB Conc 29.8 g/dL (31.6-35.5); Mean Corpuscular Hemoglobin 27.5 pg (28.0-33.3); Mean Corpuscular Volume 92.1 fL (83.0-100.0); Monocytes # 0.9 K/mcL (0.0-1.3); Monocytes % 10.6 %; Neutrophils # 4.3 K/mcL (1.6-8.9); Platelet Count 209 K/mcL (140-400); Red Blood Count 4.66 M/mcL (3.82-4.97); Red Cell Distribution Width 19.5 % (11.5-14.5); Segmented Neutrophils % 53.1 %; White Blood Count 8.1 K/mcL (4.3-11.1)
[2019-11-09] MEDS ORDERED: *HR* LORazepam 2 MG/ML VIAL IVP ONE (09:15)
[2019-11-09 09:28] LABS: Activated Partial Thrombo Time 34.4 Seconds (26.0-36.0); INR 1.4; Prothrombin Time 15.9 Seconds (9.4-12.1)
[2019-11-09 09:35] LABS: Bilirubin,Urine Negative (Negative); Blood,Urine Large (Negative); Clarity,Urine Cloudy (Clear); Color,Urine Yellow (Yellow); Glucose,Urine (UA) Normal (Normal); Ketones,Urine Negative (Negative); Leukocyte Esterase,Urine Moderate (Negative); Nitrite,Urine Negative (Negative); PH,Urine 5.5 pH Units (5.0-8.0); Protein,Urine 100 mg/dL (Neg-Trace); Specific Gravity,Urine 1.014 (1.010-1.025); Urobilinogen,Urine Normal (Normal)
[2019-11-09 09:38] LABS: Hyaline Casts,Urine None Seen per lpf (None-Few); Squamous Epithelial Cell,Urine Many per lpf (None-Few); WBC,Urine 15-30 per hpf (0-3)
[2019-11-09 09:53] LABS: Bacteria,Urine Few per hpf (None-Few)
[2019-11-09] MEDS ORDERED: Cefepime HCl 2,000 MG in 0.9 % Sodium Chloride Mini Bag 100 ML IVPB ONE (10:00)
[2019-11-09 10:12] LABS: Albumin/Globulin Ratio 0.7 (1.1-2.2); Bilirubin,Direct 0.2 mg/dL (0.0-0.2); Bilirubin,Indirect 0.3 mg/dL (0.0-1.0); Bilirubin,Total 0.5 mg/dL (0.3-1.0); Calcium 8.4 mg/dL (8.6-10.3); Globulin 4.2 g/dL (2.4-3.5); Magnesium 1.5 mg/dL (1.6-2.6); Phosphorous 6.9 mg/dL (2.7-4.5); Potassium 3.2 mEq/L (3.5-5.1); Total Protein 7.2 g/dL (6.4-8.9)
[2019-11-09] MEDS ORDERED: Naloxone 0.4 MG/ML INJ IVP PRN (10:49)
[2019-11-09] MEDS ORDERED: Vancomycin 1 EACH in 0.9 % Sodium Chloride 250 ML IVPB SCH (11:00)
[2019-11-09] MEDS ORDERED: Furosemide 20 MG/2 ML VIAL IVP ONE (11:38)
[2019-11-09] MEDS ORDERED: Potassium Chloride Elixir 20 MEQ/15 ML UDC PO SCH (11:45)
[2019-11-09] MEDS ORDERED: Azithromycin 500 MG in 0.9 % Sodium Chloride 250 ML IVPB SCH (12:00)
[2019-11-09] MEDS ORDERED: Perflutren Lipid Microsphere 1.3 ML in 0.9 % Sodium Chloride 8.7 ML IVP ONE (15:26)
[2019-11-09 20:26] VITALS: BP 130/99
[2019-11-09] MEDS ORDERED: Aminoglycoside Consult 1 EACH MC ONE (22:29)
[2019-11-10] MEDS ORDERED: cefTRIAXone 1,000 MG in 0.9 % Sodium Chloride Mini Bag 100 ML IVPB SCH (09:00)
== END 2019-11-09 22:30 | disposition other institution (70) | DRG 193 ==
LOC: EMEROOARM 08:35 → CDU 11:32 → 2NNU 17:07
PROVIDERS: ADMIT Student in an Organized Health Care Education/Training Program; ATTEND Student in an Organized Health Care Education/Training Program

== ENCOUNTER 2020-06-09 16:43 | Inpatient (IN) ==
[2020-06-09 17:37] LABS: Basophils % 0.5 %; Eosinophils # 0.2 K/mcL (0.0-0.6); Eosinophils % 2.7 %; Hematocrit 45.5 % (35.3-44.9); Hemoglobin 14.1 g/dL (11.5-15.4); Immature Granulocytes % 0.3 % (0-4); Lymphocytes % 25.5 %; Mean Corpuscular Hemoglobin 24.5 pg (28.0-33.3); Mean Corpuscular Volume 79.1 fL (83.0-100.0); Mean Platelet Volume 9.6 fL (9.4-12.4); Monocytes # 0.5 K/mcL (0.0-1.3); Monocytes % 6.6 %; Platelet Count 186 K/mcL (140-400); Red Blood Count 5.75 M/mcL (3.82-4.97); Red Cell Distribution Width 18.3 % (11.5-14.5); Segmented Neutrophils % 64.4 %; White Blood Count 7.8 K/mcL (4.3-11.1)
[2020-06-09 17:55] LABS: BUN/Creatinine Ratio 30 (6-26); Blood Urea Nitrogen 16 mg/dL (6-20); Calcium 9.9 mg/dL (8.6-10.3); Carbon Dioxide 27 mEq/L (23-29); Chloride 104 mEq/L (98-107); Glucose 75 mg/dL (70-105); Osmolality,Calculated 284 (280-300); Potassium 3.3 mEq/L (3.5-5.1); Sodium 137 mEq/L (136-145); Troponin I < 0.03 ng/mL (< 0.04); eGFR For African Americans > 60 (> 60); eGFR For Non-African Americans > 60 (> 60)
[2020-06-09] MEDS ORDERED: Naloxone 0.4 MG/ML INJ IVP PRN (20:47)
[2020-06-09] MEDS: Ondansetron 4 MG/2 ML VIAL IVP PRN (20:55)
[2020-06-09] MEDS ORDERED: 0.9 % Sodium Chloride 1,000 ML IVC SCH (21:00)
[2020-06-09 22:35] LABS: Adenovirus Not Detected (Not Detect); Coronavirus 229E Not Detected (Not Detect); Coronavirus HKU1 Not Detected (Not Detect); Coronavirus NL63 Not Detected (Not Detect); Coronavirus OC43 Not Detected (Not Detect); Human Metapneumovirus Not Detected (Not Detect); Human Rhinovirus/Enterovirus DETECTED (Not Detect)
[2020-06-09 22:36] LABS: Bordetella Pertussis Not Detected (Not Detect); Chlamydophila pneumoniae Not Detected (Not Detect); Influenza A Subtype 2009 H1 Not Detected (Not Detect); Influenza B Not Detected (Not Detect); Mycoplasma pneumoniae Not Detected (Not Detect); Parainfluenza Virus 1 Not Detected (Not Detect); Parainfluenza Virus 2 Not Detected (Not Detect); Parainfluenza Virus 3 Not Detected (Not Detect); Parainfluenza Virus 4 Not Detected (Not Detect); Respiratory Syncytial Virus Not Detected (Not Detect)
[2020-06-10] MEDS ORDERED: Isovue-370 500 ML BOTTLE IVP ONE (00:56)
[2020-06-10] MEDS ORDERED: 0.9 % Sodium Chloride 1,000 ML IVC SCH (00:57)
[2020-06-10] MEDS ORDERED: Piperacillin/Tazobactam 3.375 GM in 0.9 % Sodium Chloride Mini Bag 100 ML IVPB SCH (01:00)
[2020-06-10] MEDS: *HR* LORazepam 2 MG/ML VIAL IVP PRN ×4 (02:06→23:32)
[2020-06-10 05:49] LABS: Hematocrit 40.4 % (35.3-44.9); Hemoglobin 12.4 g/dL (11.5-15.4); Mean Corpuscular HGB Conc 30.7 g/dL (31.6-35.5); Mean Corpuscular Hemoglobin 24.1 pg (28.0-33.3); Mean Corpuscular Volume 78.4 fL (83.0-100.0); Mean Platelet Volume 10.1 fL (9.4-12.4); Platelet Count 197 K/mcL (140-400); Red Blood Count 5.15 M/mcL (3.82-4.97); Red Cell Distribution Width 17.5 % (11.5-14.5); White Blood Count 7.4 K/mcL (4.3-11.1)
[2020-06-10] MEDS ORDERED: Regadenoson 0.4 MG/5 ML SYRINGE IVP ONE (05:53)
[2020-06-10 06:06] LABS: BUN/Creatinine Ratio 28 (6-26); Blood Urea Nitrogen 16 mg/dL (6-20); Calcium 9.3 mg/dL (8.6-10.3); Carbon Dioxide 24 mEq/L (23-29); Chloride 104 mEq/L (98-107); Glucose 109 mg/dL (70-105); Osmolality,Calculated 282 (280-300); Potassium 3.9 mEq/L (3.5-5.1); Sodium 135 mEq/L (136-145); eGFR For African Americans > 60 (> 60); eGFR For Non-African Americans > 60 (> 60)
[2020-06-10] MEDS ORDERED: Perflutren Lipid Microsphere 1.3 ML in 0.9 % Sodium Chloride 8.7 ML IVP PRN (07:02)
[2020-06-10] MEDS: Ondansetron 4 MG/2 ML VIAL IVP PRN (09:23)
[2020-06-10] MEDS: Apixaban 5 MG TABLET PO SCH ×2 (15:10→20:34)
[2020-06-10] MEDS: Aspirin Enteric Coated 81 MG Tablet PO SCH (15:11)
[2020-06-10] MEDS ORDERED: Ondansetron 4 MG/2 ML VIAL IVP ONE (16:44)
[2020-06-10] MEDS: Nicotine 21 MG PATCH.TD24 TD SCH (17:11)
[2020-06-10] MEDS: Acetaminophen 325 MG TABLET PO PRN (17:12)
[2020-06-10] MEDS ORDERED: Ondansetron 4 MG/2 ML VIAL IVP PRN (17:51)
[2020-06-10] MEDS ORDERED: *HR* Heparin 5,000 UNIT/ML VIAL SQ SCH (18:00)
[2020-06-11 01:32] LABS: Hematocrit 43.6 % (35.3-44.9); Hemoglobin 13.6 g/dL (11.5-15.4); Mean Corpuscular HGB Conc 31.2 g/dL (31.6-35.5); Mean Corpuscular Hemoglobin 24.6 pg (28.0-33.3); Mean Corpuscular Volume 78.8 fL (83.0-100.0); Mean Platelet Volume 9.3 fL (9.4-12.4); Platelet Count 200 K/mcL (140-400); Red Blood Count 5.53 M/mcL (3.82-4.97); Red Cell Distribution Width 17.2 % (11.5-14.5)
[2020-06-11 01:46] LABS: BUN/Creatinine Ratio 22 (6-26); Blood Urea Nitrogen 13 mg/dL (6-20); C-Reactive Protein 7 mg/L (Less than 10); Calcium 9.2 mg/dL (8.6-10.3); Carbon Dioxide 22 mEq/L (23-29); Chloride 104 mEq/L (98-107); Glucose 130 mg/dL (70-105); Osmolality,Calculated 282 (280-300); Potassium 3.7 mEq/L (3.5-5.1); Sodium 135 mEq/L (136-145); eGFR For African Americans > 60 (> 60); eGFR For Non-African Americans > 60 (> 60)
[2020-06-11] MEDS: Acetaminophen 325 MG TABLET PO PRN ×2 (02:05→19:58)
[2020-06-11 03:44] LABS: Acinetobacter baumannii by PCR Not Detected (Not Detect); Candida albicans by PCR Not Detected (Not Detect); Candida glabrata by PCR Not Detected (Not Detect); Candida krusei by PCR Not Detected (Not Detect); Candida parapsilosis by PCR Not Detected (Not Detect); Candida tropicalis by PCR Not Detected (Not Detect); Enterobacter cloacae Cmplx PCR Not Detected (Not Detect); Enterobacteriaceae by PCR Not Detected (Not Detect); Enterococcus by PCR Not Detected (Not Detect); Escherichia coli by PCR Not Detected (Not Detect); Klebsiella oxytoca by PCR Not Detected (Not Detect); Klebsiella pneumoniae by PCR Not Detected (Not Detect); Proteus by PCR Not Detected (Not Detect); Pseudomonas aeruginosa by PCR Not Detected (Not Detect); Serratia marcescens by PCR Not Detected (Not Detect); Staphylococcus aureus by PCR Not Detected (Not Detect); Staphylococcus by PCR Not Detected (Not Detect); Streptococcus agalactiae(B)PCR Not Detected (Not Detect); Streptococcus by PCR DETECTED (Not Detect); Streptococcus pneumoniae PCR Not Detected (Not Detect); Streptococcus pyogenes (A) PCR Not Detected (Not Detect); blaKPC Carbapenem-Resist Gene Not Detected (Not Detect); mecA Methicillin-Resist Gene Not Detected (Not Detect); vanA/B Vancomycin-Resist Genes Not Detected (Not Detect)
[2020-06-11] MEDS ORDERED: methylPREDNISolone 125 MG/2 ML VIAL IVP ONE (05:59)
[2020-06-11] MEDS ORDERED: Piperacillin/Tazobactam 3.375 GM in 0.9 % Sodium Chloride Mini Bag 100 ML IVPB SCH (06:00)
[2020-06-11] MEDS: Aspirin Enteric Coated 81 MG Tablet PO SCH (07:01)
[2020-06-11] MEDS: *HR* LORazepam 2 MG/ML VIAL IVP PRN ×4 (07:02→23:07)
[2020-06-11] MEDS: Nicotine 21 MG PATCH.TD24 TD SCH (07:02)
[2020-06-11] MEDS: Apixaban 5 MG TABLET PO SCH ×2 (07:02→19:56)
[2020-06-11] MEDS: Clindamycin 600 MG/50 ML 600 MG/50 ML IV.SOLN IVPB SCH ×3 (11:18→23:07)
[2020-06-12] MEDS: *HR* LORazepam 2 MG/ML VIAL IVP PRN ×3 (08:20→16:58)
[2020-06-12] MEDS: Aspirin Enteric Coated 81 MG Tablet PO SCH (08:22)
[2020-06-12] MEDS: Apixaban 5 MG TABLET PO SCH (08:22)
[2020-06-12] MEDS: Clindamycin 600 MG/50 ML 600 MG/50 ML IV.SOLN IVPB SCH (08:23)
[2020-06-12] MEDS: Nicotine 21 MG PATCH.TD24 TD SCH (08:24)
[2020-06-12] MEDS: Acetaminophen 325 MG TABLET PO PRN ×2 (08:34→16:54)
[2020-06-12] MEDS ORDERED: cefTRIAXone 2,000 MG in Water for inj. (sterile) 20 ML IVP SCH (15:00)
[2020-06-12 16:00] VITALS: BP 103/65
[2020-06-12] MEDS ORDERED: Gentamicin 60 MG in 0.9 % Sodium Chloride 100 ML IVPB SCH (16:00)
== END 2020-06-12 17:37 | disposition home or self-care (01) | DRG 206 ==
LOC: EMEROOARM 16:43 → 3BNU 16:43 → EMEROOARM 18:01 → 3BNU 22:52
PROVIDERS: ADMIT Internal Medicine; ATTEND Internal Medicine

== ENCOUNTER 2020-07-07 11:56 | Observation (INO) ==
[2020-07-07] MEDS ORDERED: Ondansetron ODT 4 MG TAB.RAPDIS SL ONE (12:03)
[2020-07-07 12:53] LABS: Basophils % 0.3 %; Eosinophils # 0.1 K/mcL (0.0-0.6); Hematocrit 38.3 % (35.3-44.9); Hemoglobin 11.7 g/dL (11.5-15.4); Immature Granulocytes % 0.7 % (0-4); Lymphocytes # 1.4 K/mcL (0.6-4.6); Lymphocytes % 11.8 %; Mean Corpuscular HGB Conc 30.5 g/dL (31.6-35.5); Mean Corpuscular Hemoglobin 24.4 pg (28.0-33.3); Monocytes # 0.7 K/mcL (0.0-1.3); Monocytes % 5.9 %; Neutrophils # 9.4 K/mcL (1.6-8.9); Platelet Count 121 K/mcL (140-400); Red Blood Count 4.79 M/mcL (3.82-4.97); Red Cell Distribution Width 16.7 % (11.5-14.5); Segmented Neutrophils % 80.3 %; White Blood Count 11.7 K/mcL (4.3-11.1)
[2020-07-07 12:59] LABS: INR 1.2; Prothrombin Time 13.1 Seconds (9.4-12.1)
[2020-07-07 13:01] LABS: Activated Partial Thrombo Time 22.6 Seconds (26.0-36.0)
[2020-07-07 13:11] LABS: Amorphous Sediment,Urine Few per hpf (None-Few); Bacteria,Urine Few per hpf (None-Few); Bilirubin,Urine Negative (Negative); Blood,Urine Negative (Negative); Clarity,Urine Turbid (Clear); Color,Urine Yellow (Yellow); Glucose,Urine (UA) Normal (Normal); Ketones,Urine Negative (Negative); Leukocyte Esterase,Urine Negative (Negative); Mucus,Urine Few per lpf (None-Few); Nitrite,Urine Negative (Negative); Protein,Urine Trace mg/dL (Neg-Trace); Specific Gravity,Urine 1.023 (1.010-1.025); Squamous Epithelial Cell,Urine Moderate per hpf (None-Few)
[2020-07-07 13:12] LABS: Alanine Aminotransferase 32 Units/L (7-52); Albumin 3.4 g/dL (3.5-5.7); Albumin/Globulin Ratio 0.8 (1.1-2.2); Alkaline Phosphatase 101 Units/L (34-104); Aspartate Amino Transferase 19 Units/L (13-39); BUN/Creatinine Ratio 17 (6-26); Bilirubin,Direct 0.2 mg/dL (0.0-0.2); Bilirubin,Indirect 0.5 mg/dL (0.0-1.0); Bilirubin,Total 0.7 mg/dL (0.3-1.0); Blood Urea Nitrogen 9 mg/dL (6-20); Calcium 8.8 mg/dL (8.6-10.3); Carbon Dioxide 26 mEq/L (23-29); Chloride 100 mEq/L (98-107); Globulin 4.1 g/dL (2.4-3.5); Glucose 132 mg/dL (70-105); Lipase 11 Units/L (11-82); Osmolality,Calculated 275 (280-300); Potassium 3.7 mEq/L (3.5-5.1); Sodium 132 mEq/L (136-145); Total Protein 7.5 g/dL (6.4-8.9); Troponin I < 0.03 ng/mL (< 0.04); eGFR For African Americans > 60 (> 60); eGFR For Non-African Americans > 60 (> 60)
[2020-07-07] MEDS ORDERED: cefTRIAXone 1,000 MG in Water for inj. (sterile) 10 ML IVP ONE (13:41)
[2020-07-07] MEDS ORDERED: Gentamicin 60 MG in 0.9 % Sodium Chloride 100 ML IVPB STA (13:48)
[2020-07-07] MEDS ORDERED: cefTRIAXone 2,000 MG in Water for inj. (sterile) 20 ML IVP STA (13:49)
[2020-07-07] MEDS ORDERED: Isovue-370 500 ML BOTTLE IVP ONE (14:06)
[2020-07-07] MEDS ORDERED: *HR* HYDROcodone/Acet 5/325 mg TABLET PO PRN (16:57)
[2020-07-07] MEDS ORDERED: Acetaminophen 325 MG TABLET PO PRN (16:57)
[2020-07-07] MEDS ORDERED: Naloxone 0.4 MG/ML INJ IVP PRN (16:57)
[2020-07-07] MEDS ORDERED: Ondansetron 4 MG/2 ML VIAL IVP PRN (16:57)
[2020-07-07] MEDS ORDERED: hydrOXYzine pamoate 25 MG CAPSULE PO PRN (17:12)
[2020-07-07] MEDS ORDERED: Perflutren Lipid Microsphere 1.3 ML in 0.9 % Sodium Chloride 8.7 ML IVP PRN (17:31)
[2020-07-07] MEDS: 0.9 % Sodium Chloride 1,000 ML IVC SCH (18:57)
[2020-07-07] MEDS: Piperacillin/Tazobactam 3.375 GM in 0.9 % Sodium Chloride Mini Bag 100 ML IVPB SCH (18:58)
[2020-07-07] MEDS: Apixaban 5 MG TABLET PO SCH (19:50)
[2020-07-07] MEDS: Ibuprofen 400 MG TABLET PO PRN (19:50)
[2020-07-07] MEDS ORDERED: Doxycycline 100 MG in 0.9 % Sodium Chloride Mini Bag 100 ML IVPB SCH (21:00)
[2020-07-07] MEDS: Gentamicin 60 MG in 0.9 % Sodium Chloride 100 ML IVPB SCH (22:47)
[2020-07-08 00:26] LABS: Amphetamine Screen,Urine Positive ng/mL (Cutoff=1000); Barbiturate Screen,Urine Negative ng/mL (Cutoff=200); Benzodiazepines Screen,Urine Negative ng/mL (Cutoff=200); Cannabinoid Screen,Urine Negative ng/mL (Cutoff = 50); Cocaine Screen,Urine Negative ng/mL (Cutoff= 300); Opiate Screen,Urine Negative ng/mL (Cutoff=300); Phencyclidine Screen,Urine Negative ng/mL (Cutoff=25)
[2020-07-08] MEDS: Piperacillin/Tazobactam 3.375 GM in 0.9 % Sodium Chloride Mini Bag 100 ML IVPB SCH ×2 (02:42→09:46)
[2020-07-08 06:29] LABS: Basophils % 0.4 %; Eosinophils # 0.2 K/mcL (0.0-0.6); Eosinophils % 2.8 %; Hematocrit 39.4 % (35.3-44.9); Hemoglobin 12.1 g/dL (11.5-15.4); Immature Granulocytes % 1.3 % (0-4); Lymphocytes # 1.6 K/mcL (0.6-4.6); Lymphocytes % 29.2 %; Mean Corpuscular HGB Conc 30.7 g/dL (31.6-35.5); Mean Corpuscular Hemoglobin 25.7 pg (28.0-33.3); Mean Corpuscular Volume 83.7 fL (83.0-100.0); Mean Platelet Volume 10.3 fL (9.4-12.4); Monocytes # 0.5 K/mcL (0.0-1.3); Monocytes % 9.1 %; Neutrophils # 3.1 K/mcL (1.6-8.9); Platelet Count 127 K/mcL (140-400); Red Blood Count 4.71 M/mcL (3.82-4.97); Red Cell Distribution Width 17.1 % (11.5-14.5); Segmented Neutrophils % 57.2 %
[2020-07-08 06:30] LABS: White Blood Count 5.4 K/mcL (4.3-11.1)
[2020-07-08] MEDS: Gentamicin 60 MG in 0.9 % Sodium Chloride 100 ML IVPB SCH ×2 (06:31→14:21)
[2020-07-08 06:48] LABS: BUN/Creatinine Ratio 17 (6-26); Blood Urea Nitrogen 12 mg/dL (6-20); Calcium 8.5 mg/dL (8.6-10.3); Carbon Dioxide 28 mEq/L (23-29); Chloride 103 mEq/L (98-107); Glucose 127 mg/dL (70-105); Magnesium 1.7 mg/dL (1.6-2.6); Osmolality,Calculated 285 (280-300); Potassium 3.6 mEq/L (3.5-5.1); Sodium 137 mEq/L (136-145); eGFR For African Americans > 60 (> 60); eGFR For Non-African Americans > 60 (> 60)
[2020-07-08] MEDS: Apixaban 5 MG TABLET PO SCH (08:37)
[2020-07-08 12:12] VITALS: BP 117/73
[2020-07-08 12:45] LABS: Acinetobacter baumannii by PCR Not Detected (Not Detect); Enterobacter cloacae Cmplx PCR Not Detected (Not Detect); Enterobacteriaceae by PCR Not Detected (Not Detect); Enterococcus by PCR Not Detected (Not Detect); Escherichia coli by PCR Not Detected (Not Detect); Klebsiella oxytoca by PCR Not Detected (Not Detect); Klebsiella pneumoniae by PCR Not Detected (Not Detect); Staphylococcus aureus by PCR Not Detected (Not Detect); Staphylococcus by PCR Not Detected (Not Detect); Streptococcus agalactiae(B)PCR Not Detected (Not Detect); Streptococcus by PCR DETECTED (Not Detect); Streptococcus pneumoniae PCR Not Detected (Not Detect); Streptococcus pyogenes (A) PCR Not Detected (Not Detect)
[2020-07-08 12:46] LABS: Candida albicans by PCR Not Detected (Not Detect); Candida glabrata by PCR Not Detected (Not Detect); Candida krusei by PCR Not Detected (Not Detect); Candida parapsilosis by PCR Not Detected (Not Detect); Candida tropicalis by PCR Not Detected (Not Detect); Proteus by PCR Not Detected (Not Detect); Pseudomonas aeruginosa by PCR Not Detected (Not Detect); Serratia marcescens by PCR Not Detected (Not Detect)
[2020-07-08] MEDS: 0.9 % Sodium Chloride 1,000 ML IVC SCH (14:21)
[2020-07-08] MEDS: Ibuprofen 400 MG TABLET PO PRN (14:25)
== END 2020-07-08 16:42 | disposition left against medical advice (07) ==
LOC: 2ANU 11:56 → EMEROOARM 11:56 → SUATTDRO 16:16 → 2ANU 16:38
PROVIDERS: ADMIT Internal Medicine; ATTEND Internal Medicine

== ENCOUNTER 2020-08-20 11:43 | Inpatient (IN) ==
[2020-08-20] MEDS ORDERED: 0.9 % Sodium Chloride 1,000 ML IVC ONE ×2 (12:01→13:36)
[2020-08-20] MEDS ORDERED: Isovue-370 500 ML BOTTLE IVP ONE ×2 (12:03→13:28)
[2020-08-20 12:46] LABS: Eosinophils % 0.2 %; Hematocrit 32.3 % (35.3-44.9); Hemoglobin 9.3 g/dL (11.5-15.4); Mean Corpuscular HGB Conc 28.8 g/dL (31.6-35.5); Nucleated Red Blood Cells 0.1 /100 WBC (0)
[2020-08-20 12:47] LABS: Amphetamine Screen,Urine Positive ng/mL (Cutoff=1000); Barbiturate Screen,Urine Negative ng/mL (Cutoff=200); Benzodiazepines Screen,Urine Negative ng/mL (Cutoff=200); Cannabinoid Screen,Urine Negative ng/mL (Cutoff = 50); Cocaine Screen,Urine Negative ng/mL (Cutoff= 300); Opiate Screen,Urine Negative ng/mL (Cutoff=300); Phencyclidine Screen,Urine Negative ng/mL (Cutoff=25)
[2020-08-20 12:50] LABS: Basophils # 0.1 K/mcL (0.0-0.2); Basophils % 0.5 %; Immature Granulocytes % 8.9 % (0-4); Immature Platelets 13.1 % (1.1-6.1); Lymphocytes # 7.2 K/mcL (0.6-4.6); Lymphocytes % 30.2 %; Mean Corpuscular Hemoglobin 25.8 pg (28.0-33.3); Mean Corpuscular Volume 89.7 fL (83.0-100.0); Neutrophils # 12.2 K/mcL (1.6-8.9); Red Cell Distribution Width 20.7 % (11.5-14.5); Segmented Neutrophils % 51.2 %; White Blood Count 23.8 K/mcL (4.3-11.1)
[2020-08-20 12:52] LABS: Bacteria,Urine Few per hpf (None-Few); Bilirubin,Urine Negative (Negative); Blood,Urine Small (Negative); Clarity,Urine Turbid (Clear); Color,Urine Yellow (Yellow); Glucose,Urine (UA) Normal (Normal); Ketones,Urine Trace mg/dL (Negative); Leukocyte Esterase,Urine Large (Negative); Mucus,Urine Few per lpf (None-Few); Nitrite,Urine Negative (Negative); PH,Urine 5.5 pH Units (5.0-8.0); Protein,Urine 50 mg/dL (Neg-Trace); Specific Gravity,Urine 1.018 (1.010-1.025); Squamous Epithelial Cell,Urine Few per hpf (None-Few); Urobilinogen,Urine Normal (Normal); WBC,Urine TNTC per hpf (0-3)
[2020-08-20 12:54] LABS: Amorphous Sediment,Urine Few per hpf (None-Few)
[2020-08-20] MEDS ORDERED: Norepinephrine 4 MG/254 ML IV.SOLN IVC SCH (13:00)
[2020-08-20 13:01] LABS: Prothrombin Time 22.5 Seconds (9.4-12.1)
[2020-08-20] MEDS ORDERED: Vasopressin 40 UNIT in D5% in Water 100 ML IVC SCH (13:03)
[2020-08-20 13:04] LABS: Activated Partial Thrombo Time 76.1 Seconds (26.0-36.0)
[2020-08-20] MEDS ORDERED: *HR* Vasopressin 20 UNIT/ML VIAL ONE ×2 (13:08→17:14)
[2020-08-20] MEDS ORDERED: D5% in Water 100 ML ONE ×2 (13:08→17:14)
[2020-08-20 13:09] LABS: Eosinophils # 0.1 K/mcL (0.0-0.6); Monocytes # 2.1 K/mcL (0.0-1.3)
[2020-08-20 13:16] LABS: Alanine Aminotransferase 21 Units/L (7-52); Albumin 2.1 g/dL (3.5-5.7); Albumin/Globulin Ratio 0.5 (1.1-2.2); Alkaline Phosphatase 221 Units/L (34-104); Aspartate Amino Transferase 74 Units/L (13-39); Bilirubin,Direct 3.6 mg/dL (0.0-0.2); Bilirubin,Indirect 1.1 mg/dL (0.0-1.0); Bilirubin,Total 4.7 mg/dL (0.3-1.0); Blood Urea Nitrogen > 130 mg/dL (6-20); Calcium 8.6 mg/dL (8.6-10.3); Carbon Dioxide 7 mEq/L (23-29); Chloride 91 mEq/L (98-107); Ethanol < 10 mg/dL (Less than 10); Globulin 4.1 g/dL (2.4-3.5); Glucose 90 mg/dL (70-105); Potassium 4.1 mEq/L (3.5-5.1); Sodium 128 mEq/L (136-145); Total Protein 6.2 g/dL (6.4-8.9); eGFR For African Americans 8 (> 60); eGFR For Non-African Americans 7 (> 60)
[2020-08-20 13:18] LABS: Platelet Count 5 K/mcL (140-400)
[2020-08-20 13:23] LABS: Anisocytosis 1+ (Not Present); Hypochromasia Present (Not Present)
[2020-08-20] MEDS ORDERED: *HR* EPINEPHrine 100 MCG/10 ML SYRINGE IVP ONE (13:23)
[2020-08-20 13:24] LABS: Platelet Estimate Marked Decrease (Normal); Poikilocytosis 1+ (Not Present); Reactive Lymphocytes Present (Not Present); Toxic Granulation Present (Not Present); Toxic Vacuolation Present (Not Present)
[2020-08-20] MEDS ORDERED: Phenylephrine 10 MG in 0.9 % Sodium Chloride 250 ML IVC SCH (13:29)
[2020-08-20] MEDS ORDERED: 0.9 % Sodium Chloride 250 ML ONE ×3 (13:34→19:39)
[2020-08-20] MEDS ORDERED: Hydrocortisone Sodium Succ 100 MG/2 ML VIAL IVP STA (13:53)
[2020-08-20] MEDS ORDERED: Piperacillin/Tazobactam 3.375 GM in 0.9 % Sodium Chloride Mini Bag 100 ML IVPB ONE (14:11)
[2020-08-20] MEDS ORDERED: Piperacillin/Tazobactam 3.375 GM in Water for inj. (sterile) 20 ML IVP ONE (14:16)
[2020-08-20] MEDS ORDERED: 0.9 % Sodium Chloride 1,000 ML ONE (14:27)
[2020-08-20] MEDS ORDERED: Perflutren Lipid Microsphere 1.3 ML in 0.9 % Sodium Chloride 8.7 ML IVP PRN (14:43)
[2020-08-20] MEDS ORDERED: DAPTOmycin 400 MG in 0.9 % Sodium Chloride 100 ML IVPB STA (14:46)
[2020-08-20] MEDS ORDERED: Sodium Bicarbonate 150 MEQ in D5% in Water 1,000 ML IVC SCH ×2 (15:15→18:30)
[2020-08-20] MEDS ORDERED: Naloxone 0.4 MG/ML INJ IVP PRN (17:40)
[2020-08-20] MEDS ORDERED: *HR* Norepinephrine 4 MG/4 ML VIAL IVC ONE (17:44)
[2020-08-20] MEDS ORDERED: Artificial Tears SOLN 15 ML BOTTLE BOTH EYES PRN (17:52)
[2020-08-20 18:53] LABS: Hematocrit 25.4 % (35.3-44.9); Immature Platelets 6.9 % (1.1-6.1); Mean Corpuscular HGB Conc 28.3 g/dL (31.6-35.5); Mean Corpuscular Hemoglobin 26.5 pg (28.0-33.3); Mean Corpuscular Volume 93.4 fL (83.0-100.0); Mean Platelet Volume 9.3 fL (9.4-12.4); Red Blood Count 2.72 M/mcL (3.82-4.97); Red Cell Distribution Width 21.1 % (11.5-14.5); White Blood Count 11.6 K/mcL (4.3-11.1)
[2020-08-20 18:58] LABS: VBG PCO2 73 mmHg (41-51); VBG PH < 6.50 pH Units (7.32-7.42); VBG PO2 92 mmHg (25-50)
[2020-08-20] MEDS: EPINEPHrine 1 MG in D5% in Water 250 ML IVC SCH ×2 (19:00→20:14)
[2020-08-20 19:03] LABS: Platelet Count 13 K/mcL (140-400)
[2020-08-20 19:04] LABS: Hemoglobin 7.2 g/dL (11.5-15.4)
[2020-08-20] MEDS ORDERED: Norepinephrine 16 MG in 0.9 % Sodium Chloride 500 ML IVC SCH (19:15)
[2020-08-20 19:22] LABS: Acetaminophen < 10 mcg/mL (10-20); Alanine Aminotransferase 113 Units/L (7-52); Albumin 1.6 g/dL (3.5-5.7); Albumin/Globulin Ratio 0.6 (1.1-2.2); Alkaline Phosphatase 264 Units/L (34-104); Aspartate Amino Transferase 453 Units/L (13-39); BUN/Creatinine Ratio 21 (6-26); Bilirubin,Total 4.9 mg/dL (0.3-1.0); Blood Urea Nitrogen 124 mg/dL (6-20); Calcium 6.7 mg/dL (8.6-10.3); Carbon Dioxide 7 mEq/L (23-29); Chloride 95 mEq/L (98-107); Globulin 2.9 g/dL (2.4-3.5); Glucose 11 mg/dL (70-105); Lactate Dehydrogenase 2191 Units/L (140-271); Osmolality,Calculated 315 (280-300); Potassium 5.1 mEq/L (3.5-5.1); Salicylate < 2.5 mg/dL (15.0-30.0); Sodium 135 mEq/L (136-145); Total Protein 4.5 g/dL (6.4-8.9); eGFR For African Americans 10 (> 60); eGFR For Non-African Americans 8 (> 60)
[2020-08-20 19:27] LABS: Nucleated Red Blood Cells 0.2 /100 WBC (0)
[2020-08-20 19:39] LABS: Lymphocytes # 4.2 K/mcL (0.6-4.6); Monocytes # 0.5 K/mcL (0.0-1.3); Platelet Estimate Marked Decrease (Normal); Reactive Lymphocytes Present (Not Present); Smudge Cells Present (Not Present)
[2020-08-20 19:43] LABS: Activated Partial Thrombo Time > 360.0 Seconds (26.0-36.0); Fibrinogen < 35 mg/dL (169-393); INR > 29.6; Prothrombin Time > 320.0 Seconds (9.4-12.1)
[2020-08-20 19:44] LABS: D-Dimer > 128000 ng/mLFEU (0-500)
[2020-08-20] MEDS ORDERED: *HR* Dextrose 50 % in Water (Vial) 50 ML VIAL ONE (19:56)
[2020-08-20] MEDS ORDERED: Artificial Tears SOLN 15 ML BOTTLE BOTH EYES SCH (20:00)
[2020-08-20] MEDS ORDERED: Dextrose 50 % in Water (Vial) 50 ML in D5% in 0.2% NACL 500 ML IVC SCH (20:00)
[2020-08-20 20:26] LABS: Creatine Kinase 1244 Units/L (30-223)
[2020-08-20] MEDS ORDERED: Chlorhexidine Rinse 15 ML MOUTHWASH MM SCH (21:00)
[2020-08-20 22:35] VITALS: BP 42/25
[2020-08-20] MEDS ORDERED: *HR* EPINEPHrine 1 MG/10 ML SYRINGE IVP ONE ×2 (23:29)
[2020-08-20] MEDS ORDERED: Norepinephrine 4 MG/254 ML IV.SOLN IVC ONE ×2 (23:29)
[2020-08-20] MEDS ORDERED: EPINEPHrine 1 MG/ML VIAL IV ONE (23:29)
[2020-08-20] MEDS ORDERED: *HR* Amiodarone 150 MG/3 ML VIAL IVPB ONE (23:29)
[2020-08-20] MEDS ORDERED: *HR* Atropine Sulfate 1 MG/10 ML SYRINGE IV ONE (23:29)
[2020-08-20 23:43] LABS: Enterococcus by PCR Not Detected (Not Detect); blaKPC Carbapenem-Resist Gene Not Detected (Not Detect); mecA Methicillin-Resist Gene DETECTED (Not Detect); vanA/B Vancomycin-Resist Genes Not Detected (Not Detect)
[2020-08-20 23:44] LABS: Acinetobacter baumannii by PCR Not Detected (Not Detect); Candida albicans by PCR Not Detected (Not Detect); Candida glabrata by PCR Not Detected (Not Detect); Candida krusei by PCR Not Detected (Not Detect); Candida parapsilosis by PCR Not Detected (Not Detect); Candida tropicalis by PCR Not Detected (Not Detect); Enterobacter cloacae Cmplx PCR Not Detected (Not Detect); Enterobacteriaceae by PCR Not Detected (Not Detect); Escherichia coli by PCR Not Detected (Not Detect); Klebsiella oxytoca by PCR Not Detected (Not Detect); Klebsiella pneumoniae by PCR Not Detected (Not Detect); Proteus by PCR Not Detected (Not Detect); Pseudomonas aeruginosa by PCR Not Detected (Not Detect); Serratia marcescens by PCR Not Detected (Not Detect); Staphylococcus aureus by PCR DETECTED (Not Detect); Streptococcus agalactiae(B)PCR Not Detected (Not Detect); Streptococcus by PCR Not Detected (Not Detect); Streptococcus pneumoniae PCR Not Detected (Not Detect); Streptococcus pyogenes (A) PCR Not Detected (Not Detect)
[2020-08-21] MEDS ORDERED: Piperacillin/Tazobactam 3.375 GM in 0.9 % Sodium Chloride Mini Bag 100 ML IVPB SCH
[2020-08-21] MEDS ORDERED: Hydrocortisone Sodium Succ 100 MG/2 ML VIAL IVP SCH
[2020-08-22] MEDS ORDERED: DAPTOmycin 300 MG in 0.9 % Sodium Chloride 100 ML IVPB SCH (17:00)
== END 2020-08-20 23:30 | disposition expired | DRG 720 ==
LOC: ICNU 11:43 → EMEROOARM 11:43 → ICNU 17:45
PROVIDERS: ADMIT Internal Medicine; ATTEND Internal Medicine